=== PATIENT | female | born 1985 ===

== ENCOUNTER 2021-07-19 12:45 | Inpatient (IN) | payer OTHER ==
[~2021-07-19] VITALS: Ht 160 cm; Wt 79.8 kg
[2021-07-24] MEDS ORDERED: PRENATAL TABLE1 EAC1 (09:32)
[2021-07-24] MEDS ORDERED: LEVOTHYROXINE50 MC1 (09:36)
== END 2021-07-26 12:34 | disposition home or self-care (01) | DRG 807 ==
LOC: LDR 07-24 07:53 → OB/GYN 07-24 07:53
PROVIDERS: ADMIT Obstetrics & Gynecology; ATTEND Obstetrics & Gynecology
PROC: 10E0XZZ Delivery of Products of Conception, External Approach (ICD-10-PCS; principal; 2021-07-24)
PROC: 4A1HXCZ Monitoring of Products of Conception, Cardiac Rate, External Approach (ICD-10-PCS; 2021-07-24)
DX: O80 Encounter for full-term uncomplicated delivery (principal); Z37.0 Single live birth; Z3A.39 39 weeks gestation of pregnancy; Z20.822 Contact with and (suspected) exposure to COVID-19